=== PATIENT | female | born 1950 | race Caucasian/White ===

== ENCOUNTER → 2018-06-07 | Outpatient (CLI) | payer OTHER, MEDICARE | LOC: MRI 09:23 | DX: M75.101 Unspecified rotator cuff tear or rupture of right shoulder, not specified as traumatic (principal); M25.411 Effusion, right shoulder; M75.21 Bicipital tendinitis, right shoulder ==

== ENCOUNTER 2018-07-18 05:29 | Inpatient (IN) | payer OTHER, MEDICARE ==
[2018-07-09 09:30] LABS: HEMATOCRIT 38.6 % (37.0-47.0); HEMOGLOBIN 12.6 gm/dL (12.0-15.0); MCH 28.7 pg (26.0-34.0); MCHC 32.7 g/dL (28.0-37.0); MCV 87.7 fL (80.0-100.0); RBC 4.4 mil/uL (4.20-5.00); RDW 14.8 % (10.5-14.5); WBC 6.7 thou/uL (4.0-11.0)
[2018-07-09 09:34] LABS: URINE BILIRUBIN NEGATIVE (Negative); URINE BLOOD NEGATIVE (Negative); URINE CLARITY SL CLOUDY; URINE COLOR YELLOW; URINE GLUCOSE-RANDOM* 2+ (Negative); URINE KETONES NEGATIVE (Negative); URINE LEUKOCYTES-REFLEX TRACE (Negative); URINE NITRITE-REFLEX NEGATIVE (Negative); URINE PROTEIN (DIPSTICK) NEGATIVE (Negative); URINE SPECIFIC GRAVITY >= 1.030 (1.005-1.035); URINE UROBILINOGEN 0.2 E.U./dl (0.2-1.0)
[2018-07-09 09:41] LABS: CALCIUM 9.8 mg/dL (8.5-10.1); POTASSIUM 4.6 mmol/L (3.5-5.1)
[2018-07-09 09:43] LABS: PROTIME 10.5 Seconds (9.3-11.4)
--- NOTE | 2018-07-09 15:00 | EKG ---
[address] [address] ELECTROCARDIOGRAM REPORT Name: KATHY BAIRD Room #: PRE IN M.Keyla#: [id number] ������������������ Admission: ������������������ Attend Phys: Luis Alberto Salazar Discharge: ������������������ Date of : 52 Report #: [id number] ����������������������������������������������������������������� [id number] THIS REPORT FOR: //name// [facility] Test Date: 2018-07-09 Test Time: 09:30:00 Pat Name: KATHY BAIRD Department: Room: Gender: F Line Tender Flakeboard: errol : 1950 Requested By: Luis Alberto Beth Order Number: [id number] MD: Júnior Tomlinson Measurements Intervals [place] Rate: 80 P: 68 [place]: 176 QRS: -18 QRSD: 104 T: 53 QT: 387 QTc: 447 Interpretive Statements Sinus rhythm Borderline left axis deviation No previous ECG available for comparison Electronically Signed On 07-09-2018 15:00:52 MANAGER GRANT by Júnior Tomlinson [email or web address] ��������������������������������������������� <ELECTRONICALLY SIGNED> ���������������������������������������� By: Júnior Tmolinson MD ��������������������������������������������� 07/09/18 1500 0930 0930 Júnior Tomlinson MD /CHANDA
[~2018-07-18] VITALS: Ht 160 cm; Wt 98.0 kg
[2018-07-18] VITALS (8 sets, daily range): BP systolic 104–139; BP diastolic 40–74
--- NOTE | ~2018-07-18 | O ---
[facility] [place] [address] OPERATIVE REPORT Name: KATHY BAIRD Room #: 422-P ADM IN M.R.#: [id number] Admission: 07/18/18 ������������������ Attend Phys: Luis Alberto Salazar Discharge: ������������������ Date of : 52 Report #: [id number] THIS REPORT FOR: //name// CC: Luis Alberto Urrutia DATE OF SERVICE: 07/18/2018 PREOPERATIVE DIAGNOSES: Right shoulder recurrent rotator cuff tear, glenohumeral joint arthrosis, biceps tendinopathy, subdeltoid adhesions. POSTOPERATIVE DIAGNOSES: Right shoulder recurrent rotator cuff tear, glenohumeral joint arthrosis, biceps tendinopathy, subdeltoid adhesions. PROCEDURE PERFORMED: Right shoulder reverse total shoulder arthroplasty with open biceps tenodesis, hardware removal. SURGEON: Luis Alberto Beth M.D. FLAT SCREEN WORKER: Juli Rivero PA-C. ANESTHESIA: General with preoperative ultrasound-guided interscalene block. FLUIDS: 800 mL. ESTIMATED BLOOD LOSS: Less than 50 mL. IMPLANTS UTILIZED: [employer] Unite size 10 stem with size 1 epiphysis, +3 polyethylene and a 38 mm eccentric glenosphere with standard metaglene. DESCRIPTION OF PROCEDURE: After proper identification of the patient and operative site in preoperative holding area, the operative site was signed by myself. Prophylactic antibiotics were given. The patient elected to receive an ultrasound-guided block after reviewing the risks, benefits, alternatives and potential complications with Dr. Emery. After a satisfactory block, the patient was brought back to the operative suite after induction of satisfactory general anesthesia. The patient was carefully positioned in the beach chair with head of bed elevated approximately 40 degrees. Right shoulder was sterilely prepped and draped in the usual manner and a AcesoBee limb positioning system was utilized throughout the entire procedure. Qualified respiratory care assistant utilized throughout the entire procedure to aid in patient limb positioning, visualization and retraction of soft tissues, instrument passage, closure and sling application at the end of the procedure. After the patient was sterilely prepped and draped, final skin draping was with [address] [address] OPERATIVE REPORT Name: KATHY BAIRD Room #: 422-P ADM IN M.R.#: [id number] Admission: 07/18/18 ������������������ Attend Phys: Luis Alberto Salazar Discharge: ������������������ Date of : 52 Report #: [id number] [place]. Anterior deltopectoral approach was planned. The previous incisions were not amenable to incorporation. Full thickness skin flaps were developed. Cephalic vein was identified and retracted laterally. The subdeltoid space had pronounced adhesions. These were very carefully released. Long head of the biceps tendon was tenodesed to the undersurface of the pectoralis major with #2 FiberWire. Biceps was followed proximally where tenosynovitis and partial thickness tearing was noted. Rotator interval was followed and the subscapularis was intact in its lower two-thirds and this was carefully released off the lesser tuberosity along with the anterior capsule. There was evidence of recurrence of full thickness tear of the supraspinatus and infraspinatus. Prominent suture anchors and suture fixation was removed as well as some peripheral osteophytes. Humeral head was delivered into the wound using the proximal humeral cutting guide. This was cut in approximately 20 degrees of retroversion, which matched the patient's version. The patient had very small epiphyseal area. A protection plate was applied and remaining osteophytes were carefully removed and the anchors up from within metaphyseal portion of the bone were carefully removed as well, so no foreign bodies were present. At this point, the anterior capsule was carefully released off the remaining subscapularis under direct visualization. The axillary nerve was identified and protected throughout the entire procedure. The labrum was excised circumferentially. The patient had a small size to her glenoid as well. Metaglene guide pin was placed. Position was verified. Face of the glenoid was reamed. Any excess soft tissue was also removed. Step drill was utilized. PEG was removed and this drill hole was contained. The Brady reamer had also been utilized and there was no prominence superiorly. At this point, a standard metaglene was impacted and had good initial purchase without any screw fixation. Then, superior and inferior locking screws had been placed as well as one posterior nonlocking screw anteriorly. There was not enough bone present to justify placing an 18 mm screw. Screws were sequentially tightened. Locking screws were tightened. There was good purchase and then a 38 eccentric glenosphere was positioned over a guidewire. Eccentricity was placed inferior. Locking screw was externally rotated until a click was noted and that it felt it was fully seated and engaged. This was then tightened, impacted and tightened three additional times until this was felt to be fully seated. Next, a size 10 stem had been prepared or the canal had been broached distally up to a size 10 stem, which matched the preoperative templating. There was a small amount of epiphysis or metaphyseal region present, but the fixation was still good. A +3 polyethylene liner provided good fit and tension on the soft tissues as well as stability. Trial components were removed. Joint was thoroughly irrigated with normal saline, again with antibiotic irrigant and had done so multiple times throughout the procedure Two #2 FiberWires were placed through drill holes in the anterior cortex of the humerus and the stem was prepared on the back table. It was assembled, tightened, carefully impacted into position and through the inferior suture hole, a small split in the proximal humerus was noted that extended about 12 mm and the stem was stable rotationally. A Dall-Miles cable was carefully placed under direct visualization. Care was taken to not [facility] [address] [address] OPERATIVE REPORT Name: KATHY BAIRD Room #: 422-P ADM IN M.R.#: [id number] Admission: 07/18/18 ������������������ Attend Phys: Luis Alberto Salazar Discharge: ������������������ Date of : 52 Report #: [id number] incorporate any neurovascular structures or other soft tissues. It was tightened by hand and crimped. Remaining ends of the cable were trimmed and the implant was stable. A +3 polyethylene liner was then impacted into position. Shoulder was reduced. It was stable throughout full arc of motion. Subscapularis was repaired with a #2 FiberWire in a modified Nigel-Manas technique. Joint was again thoroughly irrigated with normal saline. One gram of vancomycin powder was utilized, half of it deep, half of it more superficial. 0 Vicryl, 2-0 Vicryl and final skin closure was with a running Monocryl stitch in a subcuticular manner. This was then sealed with Dermabond. Aquacel dressing was applied. She was placed in a sling and abduction pillow, awakened and transferred to the recovery room in stable condition. ��������������������������������������������� ���������������������������������������� By: ��������������������������������������������� 1220 1416 Luis Alberto Beth, /nitish
[~2018-07-18 05:29] MED LIST: ASPIRIN325 PO; ATENOLOL 100MG100 MG PO; CELEXA10 MG PO; GLIMEPIRIDE1 MG PO; IMIPRAMINE HCL50 M2 PO; LIPITOR 20 MG T20 M1 PO; LISINOPRIL5 MG PO; METFORMIN HCL500 MG PO; PROBIOTIC1 EAC1 PO; VITAMIN D1000 UNI1 PO
--- NOTE | 2018-07-18 14:00 | NUR ---
PT ARRIVED TO ROOM FROM PACU IN STABLE CONDITION AT 13:45. S/P RIGHT TOTAL RIGHT REVERSE SHOULDER REPLACEMENT. DENIES PAIN, REPORTS RIGHT ARM IS NUMB AND UNABLE TO WIGGLE FINGERS R/T NERVE BLOCK. 2 L NC, NO OXYGEN USE AT HOME. VSS. BP LOW, HX HTN. AQUACELL, POLAR PACK, AND RIGHT SHOULDER IMMOBILIZER IN PLACE. DENIES NAUSEA. SKIN INTACT. LBM 07/18 BEFORE SURGERY. TOLERATING CLEAR LIQUIDS. FAMILY AT BEDSIDE. WILL CONTINUE TO MONITOR.
--- NOTE | 2018-07-18 19:03 | NUR ---
END OF SHIFT. A&O,X4. DENIES RIGHT SHOULDER PAIN POST OP, REPORTING NUMBNESS, NO TINGLING NOTED. PULSES +2 BILATERALLY. NOT ABLE TO WIGGLE FINGERS DUE TO NERVE BLOCK. 2 L NC, NO SOA. VSS. ADVANCED DIET TO CARB CONTROL DIABETIC, TOLERATING. NO NAUSEA. VOID X3 PER BEDSIDE COMMODE. PT IN STABLE CONDITION.
--- NOTE | 2018-07-19 04:40 | NUR ---
Pt a/o x 4. O2 2L NC. VSS. S/p right shoulder surgery. Occasional c/o right shoulder pain. Pain meds given per order. Cooling pad attached to machine applied to right shoulder incision site with surgical dressing C/D/I. Sling to right shoulder. Up with assist to BSC. Adequate UOP. at bedside. Fall precautions maintained. Pt instructed to call for assistance. Call light within reach. Will continue to monitor.
[2018-07-19 04:46] VITALS: BP 106/42
[2018-07-19 05:13] LABS: ABSOLUTE NEUTROPHILS 8.1 thou/uL (1.4-8.2); BASOPHILS 0.1 % (0.0-2.0); HEMATOCRIT 26.7 % (37.0-47.0); HEMOGLOBIN 8.9 gm/dL (12.0-15.0); LYMPHOCYTES 10.4 % (24.0-44.0); MCH 29.3 pg (26.0-34.0); MCHC 33.3 g/dL (28.0-37.0); MONOCYTES 8.2 % (1.0-8.0); PLATELET COUNT 158 thou/uL (150-400); POLYS 81.3 % (36.0-66.0); RBC 3.04 mil/uL (4.20-5.00); RDW 14.4 % (10.5-14.5); WBC 9.9 thou/uL (4.0-11.0)
[2018-07-19 05:26] LABS: CREATININE 0.9 mg/dL (0.6-1.0); MAGNESIUM 1.4 mg/dL (1.8-2.4); POTASSIUM 4.1 mmol/L (3.5-5.1)
--- NOTE | 2018-07-19 08:33 | NUR ---
ASSESMENT COMPLETED. VSS. A/O. PAIN MANAGED BY MEDS ORDERED. NO NOTED SOA. NO NV. PT RESTING IN CHAIR AT THIS TIME. AQUACEL DRESSING CDI. RIGHT ARM IMMOBILIZER INTACT. NEURO INTACT. CALL LIGHT IN REACH. WILL CONT. TO MONITOR.
[2018-07-19 08:34] VITALS: BP 145/64
[2018-07-19 12:51] VITALS: BP 145/64
== END 2018-07-19 14:19 | disposition home or self-care (01) | DRG 483 ==
LOC: 4E 05:29 → TBA 05:29 → PRE 06:03 → 4E 13:56 → PRE 14:23 → ENTRNSPT 07-19 14:10 → EDTRNSPTSTS 07-19 14:14 → 4E 07-19 14:19
PROVIDERS: Physician Assistant Surgical; ADMIT Orthopaedic Surgery Sports Medicine
DX: M75.101 Unspecified rotator cuff tear or rupture of right shoulder, not specified as traumatic (principal); M19.011 Primary osteoarthritis, right shoulder; M75.21 Bicipital tendinitis, right shoulder; M75.01 Adhesive capsulitis of right shoulder; I10 Essential (primary) hypertension; E78.5 Hyperlipidemia, unspecified; E11.9 Type 2 diabetes mellitus without complications; F41.1 Generalized anxiety disorder; G43.909 Migraine, unspecified, not intractable, without status migrainosus; F32.9 Major depressive disorder, single episode, unspecified; G25.0 Essential tremor; Z79.899 Other long term (current) drug therapy; Z86.73 Personal history of transient ischemic attack (TIA), and cerebral infarction without residual deficits
CPT/HCPCS: 10783; 50010; 50101; 50172; 50386; 50417; 50697; 50733; 50935; 51320; 51751; 51930; 52001; 52138; 52256; 53000; 53078; 54118; 55430; 56521; 56524; 56525; 56526; 56530; 57095; 57103; 62110; 62900; 65060; 70005